=== PATIENT | female | born 1965 | race Caucasian/White ===

== ENCOUNTER 2022-08-01 12:54 | Emergency (ER) | payer MEDICAID, SELFPAY ==
[2022-08-01 13:09] VITALS: BP 132/83; PULSE 111; RESP 20; TEMP 36.3; O2SAT 99; BMI 23.8
--- NOTE | 2022-08-01 13:27 | ED_ITS ---
HPI - Skin/Abscess/Foreign Bdy General: Chief complaint: Skin/Abscess/Foreign Body Stated complaint: allergic reaction Time Seen by Provider: 08/01/22 13:19 Source: patient Mode of arrival: ambulatory Limitations: no limitations History of Present Illness: Patient is a very nice 56-year-old female presents to ED today with a complaint of a pruritic rash that began 2 days ago. Patient states the only thing she can think of that she has done differently is the addition of an Epson salt to her bath. She states she went to a walk-in clinic and also mentioned something about her tongue tingling so they refused to see her and sent her to the emergency department. Patient is not having any difficulty breathing or difficulty swallowing. She has not noticed any lip or tongue swelling. MD complaint: rash Onset (ago): day(s) Location: generalized Severity: moderate Quality: pruritic Pain Consistency: constant Relieving factors: none Exacerbating factors: none Associated symptoms: Reports no associated symptoms; Deny chills, fever(s), nausea or vomiting Treatments prior to arrival: Maribeth Review of Systems Const: Denies: fever(s), chills, body aches, fatigue or malaise Eyes: Denies: change in vision, blurry vision, photophobia, floaters or seeing flashes ENMT: Denies: throat pain, odynophagia, nasal discharge or nasal congestion Card: Denies: chest pain, palpitations or lightheadedness Resp: Denies: dyspnea GI: Denies: abdominal pain, nausea or vomiting Musc: Denies: neck pain, back pain, extremity pain or joint pain Skin/Breast: Reports: rash and pruritus Neuro: Denies: headache(s), numbness in extremities, weakness in extremities, sensory changes or dizziness Physical Exam Const: COMMON NORMALS: no acute distress, average body habitus, patient oriented x3, no limitations, healthy appearing, alert and well nourished ORIENTATION/CONSCIOUSNESS: Yes awake, Yes oriented to person, Yes oriented to place and Yes oriented to time HENMT: COMMON NORMALS: normocephalic and atraumatic HEAD & SCALP: normal to inspection, normocephalic and atraumatic FACE & SINUS: normal facial exam MOUTH: other (no angioedema) Eye: GENERAL EYE: appearance normal, both eyes and all related structures Neck/C-Spine: GENERAL: Yes normal visual inspection, No anterior neck swelling and No submandibular swelling Resp: COMMON NORMALS: normal respiratory effort and clear to auscultation bilaterally AUSCULTATION: clear to auscultation bilaterally Cardio: COMMON NORMALS: regular rate and regular rhythm RATE: regular rate RHYTHM: regular rhythm Extremity: GENERAL: Yes normal exam except as noted Neuro: ASIM COMA SCALE: document GCS findings Asim coma scale eye opening: Spontaneous [place] coma scale verbal response: Orientated [place] coma scale motor response: Obey commands [place] coma scale total score: 15 COMMON NORMALS: patient oriented x3 and gait normal SENSORIUM/ORIENTATION: Yes alert, Yes oriented to person, Yes oriented to place and Yes oriented to time Skin: NARRATIVE SKIN EXAM: pt with erythematous rash to bilateral UE/LEs, anterior chest, neck/scalp, and anterior trunk/abdomen; excoriations noted Course Vital Signs: Vital signs: Vital Signs Temperature 97.7 F 08/01/22 14:29 Pulse Rate 84 08/01/22 14:29 Respiratory Rate 16 08/01/22 14:29 Blood Pressure 107/73 08/01/22 14:29 Pulse Oximetry 99 08/01/22 14:29 Oxygen Delivery Me thod 08/01/22 14:29 MDM - Skin/Abscess/Foreign Bdy Medicial Decision Making Rash has almost fully subsided after IV Benadryl, Solu-Medrol, Pepcid. She feels significantly better. Recommend she continue Benadryl at home and will place her on a 7-day steroid taper. Return to ED precautions given. Discharge Plan Discharge Patient Disposition: Home Clinical Impression: Allergic reaction Qualifiers: Encounter type: initial encounter Qualified Code(s): T78.40XA - Allergy, unspecified, initial encounter Condition: Stable Prescriptions: New prednisone 10 mg tablet 10 mg PO DAILY 10 Days Qty: 27 0RF Rx Instructions: 6 tabs on days 1-2, 5 tabs on days 3, 4 tabs on day 4, 3 tabs on day 5, 2 tabs on day 6, 1 tab on day 7 Discharge Orders: Discharge ED (Routine); Ordered 08/01/22 Ordered By: Doris Mosqueda Patient Instructions: Allergic Reaction Activity Restrictions/Additional Instructions: In addition to the steroid taper prescribed to you-you may take 50 mg of diphenhydramine/benadryl every 4-6 hours as needed for rash and itching. Coding Level of Care Code ED Cistern Room Working Supervisor for Chelly Flores
[2022-08-01] MEDS: famotidine 20 mg/2 mL INJ 40 MG IVP (13:58)
[2022-08-01] MEDS: diphenhydrAMINE 50 mg/mL SDV 1mL IVP (13:59)
[2022-08-01 14:29] VITALS: BP 107/73; PULSE 84; RESP 16; TEMP 36.5; O2SAT 99
--- NOTE | 2022-08-08 17:12 | DCPLANNER ---
08.06. - patient called due to no primary care physician - patient stated that she sees Justin Tracy in [facility]
== END 2022-08-01 14:52 | disposition home or self-care (01) ==
PROVIDERS: Emergency Provider Physician Assistant
DX: T78.40XA Allergy, unspecified, initial encounter (principal)
CPT/HCPCS: 96374; 96375; 99284; J1200; J2930; J3490

== ENCOUNTER 2022-08-04 10:37 | Emergency (ER) | payer MEDICAID, SELFPAY ==
[2022-08-04 11:18] VITALS: BP 150/88; PULSE 96; RESP 16; TEMP 36.6; O2SAT 98
[2022-08-04 11:40] LABS: Add Urine Microscopic? NO; Charge for UA Resulting for Rev
[2022-08-04 11:54] LABS: Bilirubin Urine Neg (Negative); Blood Urine Neg (Negative); Glucose Urine UA Norm (Normal); Ketones Urine Negative (Negative); Leukocyte Esterase Urine Negative (Negative); Nitrate Urine Negative (Negative); Protein Urine Neg (Negative); Sulfosalicylic Acid Urine Negative (Negative); Urine Appearance Clear (CLEAR); Urine Color Light yellow (Yellow); Urobilinogen Urine Neg (Negative); pH Urine 8 (5-7)
--- NOTE | 2022-08-04 12:15 | ED_ITS ---
Documented by User: SANDEEP Mosley 08/05/22 08:42 HPI - Back Pain/Injury General: Chief Complaint: Back Pain/Injury Stated Complaint: Lower Back and Right rib pain Time Seen by Provider: 08/04/22 12:08 History of Present Illness: Patient is a 56-year-old female comes to the ED with back pain. Symptoms started a little over a week ago. Denies any fall or lifting injury to cause pain. She rates her pain currently a 9 out of 10 and is located all in her lower back bilaterally. She describes the pain as crushing pain in lower back. Pain worsens with position changes or when lifting her left leg. Denies any pain radiating down into her legs. Denies any bladder or bowel incontinence, pelvic anesthesia or weakness to lower extremities. Patient is also complaining of having right rib pain that started within the past couple days as well. Denies any injury to cause pain. Right rib pain worsens if she takes a deep breath. Associated symptoms: Deny abdominal pain, chills, dysuria, fatigue, fever(s), hematuria, nausea or vomiting Review of Systems Const: Denies: fever(s), chills or fatigue Eyes: Denies: change in vision or eye discomfort ENMT: Denies: throat pain, odynophagia, nasal discharge or nasal congestion Card: Denies: chest pain, palpitations, edema, swelling of feet/ankles, dyspnea on exertion or orthopnea Resp: Denies: dyspnea, productive cough or non-productive cough GI: Denies: abdominal pain, nausea, vomiting, diarrhea, constipation or hematochezia : Denies: flank pain, dysuria or hematuria Musc: Reports: back pain and other (Right rib pain); Denies: neck pain or extremity swelling Skin/Breast: Denies: rash or new lesions Neuro: Denies: headache(s), numbness in extremities or weakness in extremities PFS ED PFSH: Medical History (Updated 08/05/22 @ 08:11 by SANDEEP Mosley) No pertinent family history Surgical History (Updated 08/05/22 @ 08:11 by SANDEEP Mosley) No pertinent past surgical history Physical Exam Const: COMMON NORMALS: patient oriented x3 and alert GENERAL APPEARANCE: cooperative HENMT: COMMON NORMALS: normocephalic HEAD & SCALP: normocephalic MOUTH: Normal oral and palatal mucosa present THROAT: posterior oropharynx normal and uvula midline Neck/C-Spine: COMMON NORMALS: supple GENERAL: Yes normal visual inspection Chest: CHEST: Yes tenderness rib right anterior-axillary line involving the 6th rib and involving the 7th rib Resp: COMMON NORMALS: normal respiratory effort, No retractions, No use of acc essory muscles and clear to auscultation bilaterally AUSCULTATION: clear to auscultation bilaterally Cardio: COMMON NORMALS: regular rate, regular rhythm, S1 normal heart sound present, S2 normal heart sound present, No gallops present (Cardio), No clicks present (Cardio), No murmurs present (Cardio) and Peripheral pulses 2+ throughout RATE: regular rate RHYTHM: regular rhythm HEART SOUNDS: S1 normal heart sound present and S2 normal heart sound present PERIPHERAL PULSES: Peripheral pulses 2+ throughout GI: COMMON NORMALS: Normal to inspection, nondistended, normoactive bowel sounds present, Soft to palpation, non-tender and no masses PALPATION: Yes Soft to palpation : COMMON NORMALS: Yes no CVA tenderness BLADDER/KIDNEY EXAM: Yes no CVA tenderness Back/Pelvis: COMMON NORMALS: no CVA tenderness LUMBAR SPINE/LOWER BACK: Yes pain with ROM, No lumbar spinal tenderness and Yes paraspinal muscle tenderness Lumbar paraspinal muscle tenderness: bilateral Bilateral lumbar paraspinal muscle tenderness: L3, L4 and L5 Extremity: COMMON NORMALS: normal to inspection Neuro: COMMON NORMALS: patient oriented x3 SENSORIUM/ORIENTATION: Yes alert GAIT: Yes Normal gait present Skin: GENERAL SKIN EXAM: dry skin Course Vital Signs: Vital signs: Vital Signs Temperature 97.9 F 08/04/22 11:18 Pulse Rate 96 08/04/22 11:18 Respiratory Rate 16 08/04/22 11:18 Blood Pressure 150/88 08/04/22 11:18 Pulse Oximetry 98 08/04/22 11:18 Oxygen Delivery Me thod 08/04/22 11:18 MDM - Back Pain/Injury Medical Decision Making Patient is a 56-year-old female comes to the ED with back pain. Symptoms started a little over a week ago. Denies any fall or lifting injury to cause pain. She rates her pain currently a 9 out of 10 and is located all in her lower back bilaterally. She describes the pain as crushing pain in lower back. Pain worsens with position changes or when lifting her left leg. Denies any pain radiating down into her legs. Denies any bladder or bowel incontine nce, pelvic anesthesia or weakness to lower extremities. Patient is also complaining of having right rib pain that started within the past couple days as well. Denies any injury to cause pain. Right rib pain worsens if she takes a deep breath. Vitals are stable. Patient appears nontoxic and in no acute distress. She has some bilateral lumbar paraspinal muscle tenderness around L3- L5. Exam is benign. CBC and BMP are unremarkable. Rib x-ray shows no acute findings but notes minimal sclerotic lesion in the right humeral head. Lumbar spine x-ray showed sclerotic changes of the T11-L3 vertebral bodies and medial aspect of the right ilium suggestive of clinical work-up. Mild osteoarthritis L2-L4. Given the potential bone lesion findings on x-ray it is recommended patient have an outpatient MRI done to check for bone lesions. I placed order with case management for patient to be set up with an outpatient MRI of the lumbar spine to further investigate bone lesions. Patient was diagnosed with lesion of bone on bone sacral spine and OA of lumbar spine. She discharged home with a prescription for meloxicam and a muscle relaxer. Return to ED precautions given. Patient understood and agreed with plan. Labs I reviewed the patient's lab results. 08/04/22 13:53 08/04/22 13:53 Radiology Impressions Lumbar Spine X-Ray 08/04/22 12:21 Impression: 1. Sclerotic changes of the T11 and L3 vertebral bodies and medial aspect of the right ilium and suggested clinical workup 2. Mild osteoarthritis L2-L4. Ribs X-Ray 08/04/22 12:21 Impression: 1. Negative for acute cardiopulmonary disease. 2. Negative right rib detail. 3. Minimal sclerotic change in the right humeral head which could be from an old infection, old trauma or even metastatic disease. Laboratory Results WBC 12.3 10^3/uL (4.0-10.0) H 08/04/22 13:53 RBC 4.78 10^6/uL (4.1-5.3) 08/04/22 13:53 Hgb 13.5 g/dL (11.5-15.3) 08/04/22 13:53 Hct 41.5 % (37.0-47.0) 08/04/22 13:53 MCV 86.8 fl (81-99) 08/04/22 13:53 MCH 28.2 pg (28.0-34.0) 08/04/22 13:53 MCHC 32.5 g/dL (30.0-36.0) 08/04/22 13:53 RDW 14.3 % (12.1-15.1) 08/04/22 13:53 Plt Count 440 10^3/cmm (130-400) H 08/04/22 13:53 MPV 9.9 fL (7.4-10.4) 08/04/22 13:53 Neut % (Auto) 80.5 % 08/04/22 13:53 Lymph % (Auto) 12.3 % 08/04/22 13:53 [place] % (Auto) 4.8 % 08/04/22 13:53 Eos % (Auto) 0.1 % 08/04/22 13:53 Baso % (Auto) 0.3 % 08/04/22 13:53 Neut # (Auto) 9.93 10^3/uL (1.8-7.7) H 08/04/22 13:53 Lymph # (Auto) 1.5 10^3/uL (0.8-4.8) 08/04/22 13:53 [place] # (Auto) 0.6 10^3/uL (0.2-0.9) 08/04/22 13:53 Eos # (Auto) 0.0 10^3/uL (0.0-0.8) 08/04/22 13:53 Baso # (Auto) 0.0 10^3/uL (0.0-0.1) 08/04/22 13:53 Nucleated RBC % (auto) 0 % 08/04/22 13:53 Nucleated RBCs # 0.0 /100WBC 08/04/22 13:53 Sodium 136 mmol/L (136-145) 08/04/22 13:53 Potassium 4.2 mmol/L (3.5-5.1) 08/04/22 13:53 Chloride 100 mmol/L (98-107) 08/04/22 13:53 Carbon Dioxide 23 mmol/L (22-29) 08/04/22 13:53 Anion Gap 17.2 (5-19) 08/04/22 13:53 BUN 18 mg/dL (6-20) 08/04/22 13:53 Creatinine 0.6 mg/dL (0.5-0.9) 08/04/22 13:53 GFR Calculation 104.2 mL/min (90-130) 08/04/22 13:53 Glucose 116 mg/dL (65-115) H 08/04/22 13:53 Calculated Osmolality 285 mOsm/kg (285-295) 08/04/22 13:53 Calcium 9.6 mg/dL (8.5-10.5) 08/04/22 13:53 Urine Color Light yellow (Yellow) 08/04/22 10:45 Urine Appearance Clear (CLEAR) 08/04/22 10:45 Urine pH 8 (5-7) H 08/04/22 10:45 Ur Specific [place] 1.010 (1.005-1.030) 08/04/22 10:45 Urine Protein Neg (Negative) 08/04/22 10:45 Urine Glucose (UA) Norm (Normal) 08/04/22 10:45 Urine Ketones Negative (Negative) 08/04/22 10:45 Urine Blood Neg (Negative) 08/04/22 10:45 Urine Nitrate Negative (Negative) 08/04/22 10:45 Urine Bilirubin Neg (Negative) 08/04/22 10:45 Prot Sulfosalicylic Acd Negative (Negative) 08/04/22 10:45 Urine Urobilinogen Neg mg/dL (Negative) 08/04/22 10:45 Ur Leukocyte Esterase Negative (Negative) 08/04/22 10:45 Discharge Plan Discharge Patient Disposition: Home Clinical Impression: Lesion of bone of lumbosacral spine Osteoarthritis of lumbar spine Qualifiers: Spinal osteoarthritis complication: unspecified spinal osteoarthritis Qualified Code(s): M47.816 - Spondylosis without myelopathy or radiculopathy, lumbar region Condition: Stable Prescriptions: New meloxicam 15 mg tablet 15 mg PO DAILY PRN (Reason: pain) Qty: 20 0RF methocarbamol 750 mg tablet 750 mg PO Q8H PRN (Reason: Back muscle pain and spasms) Qty: 20 0RF No Action prednisone 10 mg tablet 10 mg PO DAILY 10 Days Qty: 27 0RF Rx Instructions: 6 tabs on days 1-2, 5 tabs on days 3, 4 tabs on day 4, 3 tabs on day 5, 2 tabs on day 6, 1 tab on day 7 Discharge Orders: Discharge ED (Routine); Ordered 08/04/22 Ordered By: Felix Kang Discharge Diet: Regular Discharge Activity: Increase activity as tolerated Patient Instructions: Osteoarthritis (DC), Acute Low Back Pain (ED) Activity Restrictions/Additional Instructions: Follow-up with medical provider as directed. Case management should be contacting you in the next several days to set up an appointment for an outpatient MRI of the lumbar spine. Take medications as prescribed. Return to the ER or your medical provider if condition worsens. Please read and understand discharge instructions. Thank you for choosing [facility] for your healthcare needs today. Please realize this is an emergency room and that we are providing you with a medical screening exam and this may not be complete and all inclusive of all the testing and or work up that you may need to determine your ailment or severity of your illness. It is very important that you follow up as instructed or that you return to the Emergency Department should you have concerns or if your condition changes or worsens in any way. Coding Level of Care Code ED Emergency Management Director for Chg [facility] Documented by User: Larry Goode DO 08/05/22 15:56 HPI - Back Pain/Injury General: Chief Complaint: Back Pain/Injury Stated Complaint: Lower Back and Right rib pain Time Seen by Provider: 08/04/22 12:08 [facility] ED PFSH: Medical History (Updated 08/05/22 @ 08:11 by SANDEEP Mosley) No pertinent family history Surgical History (Updated 08/05/22 @ 08:11 by SANDEEP Mosley) No pertinent past surgical history Course Vital Signs: Vital signs: Vital Signs Temperature 97.9 F 08/04/22 11:18 Pulse Rate 96 08/04/22 11:18 Respiratory Rate 16 08/04/22 11:18 Blood Pressure 150/88 08/04/22 11:18 Pulse Oximetry 98 08/04/22 11:18 Oxygen Delivery Me thod 08/04/22 11:18 MDM - Back Pain/Injury Medical Decision Making Patient is a 56-year-old female comes to the ED with back pain. Symptoms started a little over a week ago. Denies any fall or lifting injury to cause pain. She rates her pain currently a 9 out of 10 and is located all in her lower back bilaterally. She describes the pain as crushing pain in lower back. Pain worsens with position changes or when lifting her left leg. Denies any pain radiating down into her legs. Denies any bladder or bowel incontinence, pelvic anesthesia or weakness to lower extremities. Patient is also complaining of having right rib pain that started within the past couple days as well. Denies any injury to cause pain. Right rib pain worsens if she takes a deep breath. Vitals are stable. Patient appears nontoxic and in no acute distress. She has some bilateral lumbar paraspinal muscle tenderness around L3-L5. Exam is benign. CBC and BMP are unremarkable. Rib x-ray shows no acute findings but notes minimal sclerotic lesion in the right humeral head. Lumbar spine x-ray showed sclerotic changes of the T11-L3 vertebral bodies and medial aspect of the right ilium suggestive of clinical work-up. Mild osteoarthritis L2-L4. Given the potential bone lesion findings on x-ray it is recommended patient have an outpatient MRI done to check for bone lesions. I placed order with case management for patient to be set up with an outpatient MRI of the lumbar spine to further investigate bone lesions. Patient was diagnosed with lesion of bone on bone sacral spine and OA of lumbar spine. She discharged home with a prescription for meloxicam and a muscle relaxer. Return to ED precautions given. Patient understood and agreed with plan. Chart reviewed and patient discussed with midlevel. Agree with assessment and plan. Labs 08/04/22 13:53 08/04/22 13:53 Radiology Impressions Lumbar Spine X-Ray 08/04/22 12:21 Impression: 1. Sclerotic changes of the T11 and L3 vertebral bodies and medial aspect of the right ilium and suggested clinical workup 2. Mild osteoarthritis L2-L4. Ribs X-Ray 08/04/22 12:21 Impression: 1. Negative for acute cardiopulmonary disease. 2. Negative right rib detail. 3. Minimal sclerotic change in the right humeral head which could be from an old infection, old trauma or even metastatic disease. Laboratory Results WBC 12.3 10^3/uL (4.0-10.0) H 08/04/22 13:53 RBC 4.78 10^6/uL (4.1-5.3) 08/04/22 13:53 Hgb 13.5 g/dL (11.5-15.3) 08/04/22 13:53 Hct 41.5 % (37.0-47.0) 08/04/22 13:53 MCV 86.8 fl (81-99) 08/04/22 13:53 MCH 28.2 pg (28.0-34.0) 08/04/22 13:53 MCHC 32.5 g/dL (30.0-36.0) 08/04/22 13:53 RDW 14.3 % (12.1-15.1) 08/04/22 13:53 Plt Count 440 10^3/cmm (130-400) H 08/04/22 13:53 MPV 9.9 fL (7.4-10.4) 08/04/22 13:53 Neut % (Auto) 80.5 % 08/04/22 13:53 Lymph % (Auto) 12.3 % 08/04/22 13:53 [place] % (Auto) 4.8 % 08/04/22 13:53 Eos % (Auto) 0.1 % 08/04/22 13:53 Baso % (Auto) 0.3 % 08/04/22 13:53 Neut # (Auto) 9.93 10^3/uL (1.8-7.7) H 08/04/22 13:53 Lymph # (Auto) 1.5 10^3/uL (0.8-4.8) 08/04/22 13:53 [place] # (Auto) 0.6 10^3/uL (0.2-0.9) 08/04/22 13:53 Eos # (Auto) 0.0 10^3/uL (0.0-0.8) 08/04/22 13:53 Baso # (Auto) 0.0 10^3/uL (0.0-0.1) 08/04/22 13:53 Nucleated RBC % (auto) 0 % 08/04/22 13:53 Nucleated RBCs # 0.0 /100WBC 08/04/22 13:53 Sodium 136 mmol/L (136-145) 08/04/22 13:53 Potassium 4.2 mmol/L (3.5-5.1) 08/04/22 13:53 Chloride 100 mmol/L (98-107) 08/04/22 13:53 Carbon Dioxide 23 mmol/L (22-29) 08/04/22 13:53 Anion Gap 17.2 (5-19) 08/04/22 13:53 BUN 18 mg/dL (6-20) 08/04/22 13:53 Creatinine 0.6 mg/dL (0.5-0.9) 08/04/22 13:53 GFR Calculation 104.2 mL/min (90-130) 08/04/22 13:53 Glucose 116 mg/dL (65-115) H 08/04/22 13:53 Calculated Osmolality 285 mOsm/kg (285-295) 08/04/22 13:53 Calcium 9.6 mg/dL (8.5-10.5) 08/04/22 13:53 Urine Color Light yellow (Yellow) 08/04/22 10:45 Urine Appearance Clear (CLEAR) 08/04/22 10:45 Urine pH 8 (5-7) H 08/04/22 10:45 Ur Specific [place] 1.010 (1.005-1.030) 08/04/22 10:45 Urine Protein Neg (Negative) 08/04/22 10:45 Urine Glucose (UA) Norm (Normal) 08/04/22 10:45 Urine Ketones Negative (Negative) 08/04/22 10:45 Urine Blood Neg (Negative) 08/04/22 10:45 Urine Nitrate Negative (Negative) 08/04/22 10:45 Urine Bilirubin Neg (Negative) 08/04/22 10:45 Prot Sulfosalicylic Acd Negative (Negative) 08/04/22 10:45 Urine Urobilinogen Neg mg/dL (Negative) 08/04/22 10:45 Ur Leukocyte Esterase Negative (Negative) 08/04/22 10:45 Discharge Plan Discharge Patient Disposition: Home Clinical Impression: Lesion of bone of lumbosacral spine Osteoarthritis of lumbar spine Qualifiers: Spinal osteoarthritis complication: unspecified spinal osteoarthritis Qualified Code(s): M47.816 - Spondylosis without myelopathy or radiculopathy, lumbar region Condition: Stable Prescriptions: New meloxicam 15 mg tablet 15 mg PO DAILY PRN (Reason: pain) Qty: 20 0RF methocarbamol 750 mg tablet 750 mg PO Q8H PRN (Reason: Back muscle pain and spasms) Qty: 20 0RF No Action prednisone 10 mg tablet 10 mg PO DAILY 10 Days Qty: 27 0RF Rx Instructions: 6 tabs on days 1-2, 5 tabs on days 3, 4 tabs on day 4, 3 tabs on day 5, 2 tabs on day 6, 1 tab on day 7 Discharge Orders: Discharge ED (Routine); Ordered 08/04/22 Ordered By: Felix Kang Discharge Diet: Regular Discharge Activity: Increase activity as tolerated Patient Instructions: Osteoarthritis (DC), Acute Low Back Pain (ED) Activity Restrictions/Additional Instructions: Follow-up with medical provider as directed. Case management should be contacting you in the next several days to set up an appointment for an outpatient MRI of the lumbar spine. Take medications as prescribed. Return to the ER or your medical provider if condition worsens. Please read and understand discharge instructions. Thank you for choosing [facility] for your healthcare needs today. Please realize this is an emergency room and that we are providing you with a medical screening exam and this may not be complete and all inclusive of all the testing and or work up that you may need to determine your ailment or severity of your illness. It is very important that you follow up as instructed or that you return to the Emergency Department should you have concerns or if your condition changes or worsens in any way. Coding Level of Care Code ED Emergency Management Director for Chelly Flores
--- NOTE | 2022-08-04 12:21 | XR_ITS ---
WS: [id number] Lumbar spine, 3 views, 08/04/2022 Clinical Data: low back pain Comparison: None. Findings: No compression fractures or subluxation is seen. No disc space narrowing is seen. There is minimal an terior osteophyte formation L2-L4. The transverse processes and SI joints are normal. There are diffuse sclerotic changes in the T11 and L3 vertebral body and also sclerotic changes in th e ileum adjacent to the right SI joint. These sclerotic changes could be a result of a previous infec tion or possible metastatic disease. XR/XR lumbar spine 2-3V* [id number] Impression: 1. Sclerotic changes of the T11 and L3 vertebral bodies and medial aspect of th e right ilium and suggested clinical workup 2. Mild osteoarthritis L2-L4.
--- NOTE | 2022-08-04 12:21 | XR_ITS ---
WS: [id number] Chest with right rib detail, 4 views, 08/04/2022 Clinical Data: Pain in right rib Comparison: None. Findings: The lungs show no nodules, masses, or effusions. The heart is normal. No pneumonia or pneumothorax is seen. There is minimal sclerotic change in the right humeral head. The ribs are intact. No rib fractures seen. No subcutaneous emphysema is present. No subcutaneous emphysema is seen. XR/XR ribs RT mn 3V w [id number] Impression: 1. Negative for acute cardiopulmonary disease. 2. Negative right rib detail. 3. Minimal sclerotic change in the right humeral head which could be from an ol d infection, old trauma or even metastatic disease.
[2022-08-04] MEDS: orphenadrine 30 mg/mL Inj 2 mL 60 MG IM (12:42)
[2022-08-04] MEDS: ketorolac 60 mg/2 mL INJ IM (12:42)
[2022-08-04] MEDS: ondansetron 4 MG Tablet PO (13:19)
[2022-08-04 14:04] LABS: Basophils % 0.3 %; Eosinophils % 0.1 %; Hematocrit 41.5 % (37.0-47.0); Hemoglobin 13.5 g/dL (11.5-15.3); Lymphocytes # 1.5 10^3/uL (0.8-4.8); Lymphocytes % 12.3 %; Mean Corpuscular HGB Conc 32.5 g/dL (30.0-36.0); Mean Corpuscular Hemoglobin 28.2 pg (28.0-34.0); Mean Corpuscular Volume 86.8 fl (81-99); Mean Platelet Volume 9.9 fL (7.4-10.4); Monocytes # 0.6 10^3/uL (0.2-0.9); Monocytes % 4.8 %; Neutrophils # 9.93 10^3/uL (1.8-7.7); Neutrophils % 80.5 %; Nucleated Red Blood Cells % 0 %; Platelet Count 440 10^3/cmm (130-400); Red Blood Count 4.78 10^6/uL (4.1-5.3); Red Cell Distribution Width 14.3 % (12.1-15.1); White Blood Count 12.3 10^3/uL (4.0-10.0)
[2022-08-04 14:24] LABS: Anion Gap 17.2 (5-19); Blood Urea Nitrogen 18 mg/dL (6-20); Calcium 9.6 mg/dL (8.5-10.5); Carbon Dioxide 23 mmol/L (22-29); Chloride 100 mmol/L (98-107); Glomerular Filtration Rate 104.2 mL/min (90-130); Glucose 116 mg/dL (65-115); Osmolality Calculated 285 mOsm/kg (285-295); Potassium 4.2 mmol/L (3.5-5.1); Sodium 136 mmol/L (136-145)
--- NOTE | 2022-08-05 10:09 | DCPLANNER ---
manager business information had message to schedule an outpatient MRI for patient. manager business information faxed signed order to centralized scheduling, who will call patient with appointment information.
--- NOTE | 2022-08-05 10:10 | DCPLANNER ---
manager community outreach called patient due to no primary care physician - patient stated that she sees Justin Tracy at the [facility] in [facility].
== END 2022-08-04 14:00 | disposition home or self-care (01) ==
PROVIDERS: Emergency Medicine; Emergency Provider Physician Assistant; PCP Family Medicine
DX: M47.816 Spondylosis without myelopathy or radiculopathy, lumbar region (principal); M89.9 Disorder of bone, unspecified
CPT/HCPCS: 71101; 72100; 80048; 81003; 85025; 96372; 99284; J1885; J2360; Q0162